=== PATIENT | female | born 1980 ===

== ENCOUNTER → 2019-01-30 | Outpatient (CLI) | payer MEDICAID ==
[2019-01-30 12:36] LABS: T.VAGINALIS (WET MOUNT) NO TRICHOMONAS SEEN; YEAST (WET MOUNT) BUDDING YEAST SEEN
[2019-01-30 12:37] LABS: BACTERIA (WET MOUNT) 4+ BACTERIA SEEN; EPITHELIALS (WET MOUNT) 4+ EPITHELIALS SEEN; RBCS (WET MOUNT) 1+ RBCS SEEN; WBCS (WET MOUNT) 3+ WBCS SEEN
[2019-01-30 14:32] LABS: CHLAM PCR NOT DETECTED (NOT DETECT)
== END ==
LOC: LAB 12:26
PROVIDERS: ATTEND Nurse Practitioner Acute Care
DX: N89.8 Other specified noninflammatory disorders of vagina (principal); R30.0 Dysuria
CPT/HCPCS: 87210; 87491; 87591